=== PATIENT | female | born 1975 | race Caucasian/White ===

== ENCOUNTER 2017-09-23 09:30 | Day surgery (SDC) | payer OTHER ==
[~2017-09-23 09:30] MED LIST: ATROPINE 1 MG/10 ML SYRINGE IV; BUPIVACAINE 0.5%/EPI (SDV) 30 ML INJ; DIPHENHYDRAMINE 50 MG INJ IV; EPHEDrine SULFATE 50 MG/5 ML SYG IV; FENTAnyl 50 MCG/ML VIAL IV; HYDROmorphONE (0.2 MG/ML) 10ML SYG IV; LABETALOL HCL 20MG INJ IV; MEPERIDINE 25 MG INJ IV; MIDAZOLAM 1 MG/ML 2 ML INJ IV; ONDANSETRON 4 MG INJ IV; OXYCODONE/ACETAMINOPHEN (5/325) TAB PO; SOD CHLORIDE 0.9% 1,000 ML IV; hydrALAzine 20 MG INJ IV; morphine (1 MG/ML) 10ML SYRINGE IV
[2017-09-23] MEDS ORDERED: FENTAnyl 50 MCG/ML VIAL (10:12)
[2017-09-23] MEDS ORDERED: LIDOCAINE 2% (SDV) 5 ML INJ (10:12)
[2017-09-23] MEDS ORDERED: ROCURONIUM 50 MG INJ (10:12)
[2017-09-23] MEDS ORDERED: NEOSTIGMINE 3 MG/3 ML SYRINGE (10:12)
[2017-09-23] MEDS ORDERED: GLYCOPYRROLATE 0.4 MG INJ (10:12)
[2017-09-23] MEDS ORDERED: PROPOFOL 20 ML (10:12)
[2017-09-23] MEDS ORDERED: DEXAMETHASONE 4 MG/ML 1 ML INJ (10:13)
[2017-09-23] MEDS ORDERED: MIDAZOLAM 1 MG/ML 2 ML INJ (10:13)
[2017-09-23] MEDS ORDERED: ONDANSETRON 4 MG INJ (10:13)
[2017-09-23] MEDS ORDERED: SUCCINYLCHOLINE CHLORIDE 100 MG/5 ML SYG IV (11:43)
[2017-09-23] MEDS ORDERED: ONDANSETRON 4 MG INJ IV (12:30)
[2017-09-23] MEDS ORDERED: morphine 2 MG INJ IV (12:30)
[2017-09-23] MEDS ORDERED: HYDROCODONE/APAP (5/325) TAB PO (12:30)
[2017-09-23] MEDS ORDERED: BACITRACIN 0.9 GM OINT (13:33)
== END 2017-09-23 16:30 | disposition home or self-care (01) ==
LOC: SDS 09:30
DX: C44.311 Basal cell carcinoma of skin of nose (principal)
CPT/HCPCS: 11646; 88307; 88331